=== PATIENT | male | born 1965 | race Caucasian/White ===

== ENCOUNTER 2018-07-11 21:02 | Emergency (ER) | payer OTHER ==
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
[2018-07-11] MEDS: OXYCODONE/APAP 5/325MG PREPACK#4 BTL TAKEHOME ONE (22:13)
[2018-07-11 22:19] VITALS: BP 125/80
== END 2018-07-11 22:19 | disposition home or self-care (01) ==
PROC: 0HQKXZZ Repair Right Lower Leg Skin, External Approach (ICD-10-PCS; principal; 2018-07-11)
DX: S81.011A Laceration without foreign body, right knee, initial encounter (principal); V18.0XXA Pedal cycle driver injured in noncollision transport accident in nontraffic accident, initial encounter; Y93.55 Activity, bike riding; Y92.828 Other wilderness area as the place of occurrence of the external cause